=== PATIENT | female | born 1965 | race Caucasian/White ===

== ENCOUNTER 2017-04-04 09:33 | Day surgery (SDC) | payer OTHER ==
--- NOTE | 2017-04-04 07:40 | HP ---
DATE OF SURGERY: 04/04/2017 HISTORY OF PRESENT ILLNESS: The patient is a 51 year-old with no prior colonoscopy, no recent change in bowel movements, and no bloody stools. She had a sister who in November of colon cancer. Only rare occasional pain and constipation. PAST MEDICAL HISTORY: Hypertension, arthritis. PAST SURGICAL HISTORY: She had arthroscopic knee surgery in the past. She had tubal ligation in the past. MEDICATIONS: Gabapentin, diclofenac, lisinopril hydrochlorothiazide, tramadol. ALLERGIES: NO DRUG ALLERGIES. GI UPSET WITH IBUPROFEN. FAMILY HISTORY: Heart disease. SOCIAL HISTORY: Less than pack per day smoker, occasion alcohol use. REVIEW OF SYSTEMS: Twelve systems reviewed per admission assessment. No chest pain or palpitations other systems negative or noncontributory as above and per preadmission questionnaire. PHYSICAL EXAMINATION: GENERAL: No acute distress. HEENT: Sclerae nonicteric. NECK: No JVD. CHEST: Equal excursion, nonlabored breathing. CVS: Regular rate and rhythm. ABDOMEN: Soft, nontender, nondistended. No peritoneal signs. RECTAL: Deferred timed to endoscopy exam. EXTREMITIES: No edema. NEURO: Alert, moving extremities grossly symmetrically. IMPRESSION: Family history with sister passing away of colon cancer. She will be 52 this year and she needs a screening colonoscopy. Risks and benefits explained in detail, shown the risk sheet, explained the procedure in detail including but not limited to bleeding or infection, small risk of bleeding or infection, small risk of bowel injury or perforation possibly requiring open procedure, small risk of missed or nondiagnosis or incomplete exam possibly requiring barium enema, other studies or procedures, general risk of anesthesia or sedation. She understands and agrees to the planned procedure and will proceed with outpatient screening colonoscopy.
[~2017-04-04 09:33] MED LIST: DIPRIVAN 200 MG/20 ML IV ONE; Ketamine HCl 50 MG/ML IV ONE
[2017-04-04] MEDS ORDERED: Lactated Ringers 1,000 ML IV SCH (10:00)
--- NOTE | 2017-04-04 14:19 | OP ---
SURGERY DATE/TIME: 04/04/2017 1155 PREOPERATIVE DIAGNOSIS: Need for screening colonoscopy, family history of sister with colon cancer. POSTOPERATIVE DIAGNOSES: 1) Poor bowel prep limiting exam. 2) Diverticulosis. 3) Small raised lesions rectosigmoid and upper rectum. 4) Small internal and external hemorrhoids. PROCEDURES: 1) Colonoscopy to terminal ileum. 2) Retrograde ileoscopy. 3) Hot biopsy small vague raised lesion versus hyperplastic lesion versus hyperplastic lesion versus early polyps per rectum and rectosigmoid raised lesions. SURGEON: Dr. Isaac Prabhaakr. ANESTHESIA: MAC. ESTIMATED BLOOD LOSS: Minimal. INDICATIONS: As noted above. Risks and benefits explained in detail and not limited to and consent obtained. DESCRIPTION OF PROCEDURE AND FINDINGS: The patient is taken to the endoscopy suite. MAC anesthesia induced. After official time out and no disagreement with planned procedure, digital rectal exam did not reveal any rectal masses. Video colonoscope inserted and passed up through the tortuous sigmoid, descending, transverse colon, ascending colon to the cecum and terminal ileum. Retrograde ileoscopy was able to be accomplished. Terminal ileum grossly unremarkable up the last foot and a half to couple feet to the terminal ileum. The scope was withdrawn. Colon prep overall was poor with several areas of liquidy semi-solid stool but did limit exam for potential small lesions. Otherwise there were no signs of any large polyps, masses or obstructing lesions. She did have a few diverticula. The scope was slowly and carefully pulled back to the rectosigmoid area where a few small raised lesions versus early polyp or hyperplastic lesion removed with hot biopsy forceps and also additional one in the upper rectum. Otherwise she had some internal and external hemorrhoids. She had some mild diverticulosis otherwise there are no signs of any large polyps, masses or obstructing lesions as prep quality was poor. Likely if her path is benign would recommend follow up colonoscopy in five years. Findings discussed with the family out in the waiting area.
[2017-04-04 14:30] VITALS: BP 128/82; PULSE 85; O2SAT 98
== END 2017-04-04 13:50 | disposition home or self-care (01) ==
LOC: SDC 09:33
PROVIDERS: ATTEND Surgery
PROC: 0DBP8ZX Excision of Rectum, Via Natural or Artificial Opening Endoscopic, Diagnostic (ICD-10-PCS; principal; 2017-04-04)
PROC: 0DBN8ZX Excision of Sigmoid Colon, Via Natural or Artificial Opening Endoscopic, Diagnostic (ICD-10-PCS; 2017-04-04)
PROC: 0DJD8ZZ Inspection of Lower Intestinal Tract, Via Natural or Artificial Opening Endoscopic (ICD-10-PCS; 2017-04-04)
DX: Z12.11 Encounter for screening for malignant neoplasm of colon (principal); Z80.0 Family history of malignant neoplasm of digestive organs; K57.90 Diverticulosis of intestine, part unspecified, without perforation or abscess without bleeding; K62.9 Disease of anus and rectum, unspecified; K64.4 Residual hemorrhoidal skin tags; K64.8 Other hemorrhoids
CPT/HCPCS: 00810; 36415; 88305; J2704